=== PATIENT | female | born 1970 | race African-American/Black ===

== ENCOUNTER → 2016-07-02 15:29 | Outpatient (CLI) | payer MEDICAID ==
[2012-11-28 23:57] VITALS: BMI 37.9
[~2016-07-02 15:29] MED LIST: GLIMEPIRIDE1 MG PO; GLUCOPHAGE1000 MG PO
== END | disposition home or self-care (01) ==
LOC: D.CT 15:29
DX: G93.2 Benign intracranial hypertension (principal)

== ENCOUNTER → 2017-07-03 16:11 | Outpatient (CLI) | payer MEDICAID ==
[2012-11-28 23:57] VITALS: BMI 37.9
== END | disposition home or self-care (01) ==
LOC: D.MAMMO 06-25 14:15
DX: Z12.31 Encounter for screening mammogram for malignant neoplasm of breast (principal)

== ENCOUNTER 2017-10-09 05:20 | Day surgery (SDC) | payer MEDICAID ==
[2017-10-07 12:11] LABS: ANION GAP 8.7 mmol/L (8-16); CALCIUM 8.7 mg/dL (8.5-10.1); CARBON DIOXIDE 31.7 mmol/L (21.0-32.0); POTASSIUM - SERUM 4.4 mmol/L (3.5-5.1)
[2017-10-07 12:20] LABS: BASOPHILS 0.2 % (0-2); EOSINOPHILS 3.5 % (0-7); HEMATOCRIT 41.8 % (36.0-48.0); HEMOGLOBIN 13.8 g/dL (12-16); IMMATURE GRANULOCYTES 0.1 % (0-5); LYMPHOCYTES 31.9 % (15-50); MCH 27.3 pg (26.0-34.0); MCV 82.6 fL (80.0-100.0); MEAN PLATELET VOLUME 11.5 fL (7.4-10.4); MONOCYTES 5.1 % (2-11); NEUTROPHILS 59.2 % (40-80); PLATELET COUNT 283 10x3/uL (130-400); RBC 5.06 10x6/uL (4.00-5.40); RDW 13.2 % (11.5-14.5); WBC 8.1 10x3/uL (4.8-10.8)
[~2017-10-09] VITALS: Ht 172.7 cm; Wt 103.4 kg
[~2017-10-09 05:20] MED LIST changes: +ALDACTONE50 MG PO; +CARAFATE1 G PO; +DIAMOX250 MG PO; -GLUCOPHAGE1000 MG PO; +LIPITOR10 MG PO; +METFORMIN HCL500 M1 PO; +TRULICITY1.5 MG/0.5 SC
[2017-10-09 06:15] VITALS: BP 107/75; Ht 172.7 cm; Wt 103.4 kg
[2017-10-09 06:51] LABS: HCG URINE NEGATIVE (NEGATIVE)
== END 2017-10-09 13:20 | disposition home or self-care (01) ==
LOC: D.OPS 05:20 → D.PAN 07:30 → D.OPS 07:30 → D.PAN 12:15 → D.OPS 13:20
PROVIDERS: Orthopaedic Surgery
DX: S83.241A Other tear of medial meniscus, current injury, right knee, initial encounter (principal); S83.511A Sprain of anterior cruciate ligament of right knee, initial encounter; X58.XXXA Exposure to other specified factors, initial encounter; M94.261 Chondromalacia, right knee; M67.51 Plica syndrome, right knee; M65.861 Other synovitis and tenosynovitis, right lower leg; Z01.812 Encounter for preprocedural laboratory examination

== ENCOUNTER → 2017-10-22 10:36 | Outpatient (CLI) | payer MEDICAID ==
[2017-10-09 06:15] VITALS: BMI 34.7
== END | disposition home or self-care (01) ==
LOC: D.US 10:36
DX: M25.561 Pain in right knee (principal)

== ENCOUNTER → 2017-12-31 12:54 | Outpatient (CLI) | payer MEDICAID ==
[2017-10-09 06:15] VITALS: BMI 34.7
== END | disposition home or self-care (01) ==
LOC: D.MRI 12:54
DX: G96.9 Disorder of central nervous system, unspecified (principal)